=== PATIENT | male | born 1995 | race Caucasian/White ===

== ENCOUNTER 2016-12-30 11:32 | Emergency (ER) | payer OTHER ==
[2016-12-30 11:41] VITALS: RESP 18
--- NOTE | 2016-12-30 12:17 | XR ---
EXAMINATION TYPE: XR chest 2V DATE OF EXAM: 12/30/2016 12:10 PM COMPARISON: 02/24/1999 HISTORY: Chest pain TECHNIQUE: Frontal and lateral views of the chest are obtained. FINDINGS: There is no focal air space opacity. No evidence for pnuemothorax.No pleural effusion. The cardiac silhouette size is within normal limits. The osseous structures are grossly intact. IMPRESSION: 1. No acute cardiopulmonary process.
--- NOTE | 2016-12-30 12:22 | ED ---
General Adult HPI - General Stated complaint: chest discomfort Time Seen by Provider: 12/30/16 11:34 Source: patient, EMS, RN notes reviewed Mode of arrival: EMS Limitations: no limitations - History of Present Illness Initial comments: 21-year-old male presenting for left sided lateral chest pain. Patient states he was at work lifting heavy items when he felt sudden onset of left sharp pain. He states it feels like "butterflies with razor blades fluttering in my chest." States that the symptoms resolved after about 15 minutes spontaneously. He denies any active chest pain at this time. EMS did give him a full aspirin in route and fluid bolus. Denies any significant early family history of ACS. He does smoke. States he has a history of anxiety and depression but is not currently on any medications for this. He denies any shortness breath. He denies any fevers or chills. He denies any recent injury or trauma. - Related Data Home Medications Medication Instructions Recorded Confirmed No Known Home Medications [No 12/30/16 12/30/16 Known Home Medications] Allergies Allergy/AdvReac Type Severity Reaction Status Date / Time No Known Allergies Allergy Verified 12/30/16 12:10 Review of Systems ROS Statement: Those systems with pertinent positive or pertinent negative responses have been documented in the HPI. ROS Other: All systems not noted in ROS Statement are negative. Past Medical History Additional Past Medical History / Comment(s): back pain History of Any Multi-Drug Resistant Organisms: None Reported Past Surgical History: Appendectomy Past Psychological History: Anxiety, Depression Smoking Status: Current every day smoker Past Alcohol Use History: Occasional Past Drug Use History: Marijuana General Exam - General Exam Comments Initial Comments: General: Awake and Alert. No acute distress. Does not appear acutely ill. Eyes: AXEL, EOM intact. No nystagmus. No scleral icterus. HENT: Atraumatic, normocephalic. Mucous membranes moist. Trachea midline. Neck: The neck is supple, there is no tenderness or JVD. Cardiovascular: Regular rate and rhythm. No murmur, rub, or gallop is appreciated. Distal pulses intact. Respiratory: Lungs are clear to auscultation bilaterally. No wheezes, rales, rhonchi. No respiratory distress. Gastrointestinal: Soft, Nontender. No rebound or guarding. Non-distended. No masses or organomegaly noted. No CVA tenderness. Musculoskeletal: Mild left lateral rib tenderness. Otherwise, skin exam with no tenderness. Normal ROM. No gross deformity. No strength deficits. Neurological: A&Ox3. CN II-XII grossly intact, There are no obvious motor or sensory deficits. Coordination appears grossly intact. Speech is normal. Skin: Skin is warm and dry and no rashes or lesions are noted. Psychiatric: Cooperative, appropriate mood & affect, normal judgment. Limitations: no limitations Course Vital Signs 12/30/16 11:39 Temperature 97.1 F L Pulse Rate 56 L Respiratory 18 Rate Blood Pressure 121/67 O2 Sat by Pulse 100 Oximetry EKG Findings - EKG Comments: EKG Findings:: EKG 11:42. Sinus rhythm. Rate 62. Normal axis. No STEMI. Normal EKG. Medical Decision Making - Medical Decision Making 21-year-old male presenting for chest pain. Patient does smoke but other than this has no significant cardiac risk factors. Vitals are stable, afebrile. Patient with mild reproducible tenderness on exam. Discussed likely musculoskeletal cause of pain. Chest x-ray is performed and with no acute process. EKG without evidence of significant arrhythmia or ischemia. Patient with no active symptoms during his course in the ED. Discussed reassuring findings and stable for discharge this time. Discussed close follow-up with PCP in follow-up for Holter monitor and echo if symptoms should return or persist.. Discussed concerning signs symptoms for the return to the ED. Patient and mother are agreeable with plan and discharge. - EKG Data -: EKG Interpreted by Me EKG shows normal: sinus rhythm Rate: normal - Radiology Data Radiology results: report reviewed, image reviewed Disposition Clinical Impression: Chest pain, unspecified Disposition: HOME SELF-CARE Condition: Stable Instructions: Chest Pain (ED), Costochondritis (ED) Additional Instructions: Please follow up with your primary doctor for a Holter Monitor and ECHO if symptoms return frequently. Referrals: None,Stated [Primary Care Provider] - 1-2 days Time of Disposition: 12:23
[2016-12-30 13:00] VITALS: BP 123/74; PULSE 64; TEMP 97.6
== END 2016-12-30 13:00 | disposition home or self-care (01) ==
LOC: EC 11:32
DX: R07.9 Chest pain, unspecified (principal); F17.200 Nicotine dependence, unspecified, uncomplicated
CPT/HCPCS: 71020; 93005; 99285

== ENCOUNTER 2019-02-18 02:17 | Inpatient (IN) | payer OTHER ==
--- NOTE | 2019-02-18 03:10 | ED ---
Psych HPI - General Chief Complaint: Psychiatric Symptoms Stated Complaint: Mental Health Time Seen by Provider: 02/18/19 02:20 Source: patient, police Mode of arrival: ambulatory - History of Present Illness Initial Comments: 23-year-old male patient presents to the emergency department today for evaluation of suicidal ideation. Patient states he has had a stressful couple of weeks. Patient states he was at work tonight when he had the urge to kill himself. Patient states that he did start to cut his arm with a knife he keeps in his car. Patient denies any specific plan to take his life, states he did part on the [employer] [place] approximately 15 minutes with no trains came. Patient states he has had suicide attempt in the past. Has been admitted inpatient in [facility]. Patient states he occasionally smokes marijuana to relieve his anxiety but denies any other street drugs. Denies any alcohol use. He denies any verbal or auditory hallucinations. States that it has been 1 year since he has been on any medication for depression. He denies any current physical symptoms or concerns. He is up-to-date on his tetanus vaccine. Patient denies any recent rash, fever, chills, shortness breath, chest pain, abdominal pain, nausea, vomiting, diarrhea, constipation, back pain, numbness, tingling, dizziness, weakness, hematuria, dysuria, urinary urgency, urinary frequency, headache, visual changes, or any other complaints. - Related Data Home Medications Medication Instructions Recorded Confirmed No Known Home Medications 12/30/16 12/30/16 Allergies Allergy/AdvReac Type Severity Reaction Status Date / Time No Known Allergies Allergy Verified 12/30/16 12:10 Review of Systems ROS Statement: Those systems with pertinent positive or pertinent negative responses have been documented in the HPI. ROS Other: All systems not noted in ROS Statement are negative. Past Medical History Additional Past Medical History / Comment(s): back pain History of Any Multi-Drug Resistant Organisms: None Reported Past Surgical History: Appendectomy Past Psychological History: Anxiety, Depression Smoking Status: Former smoker Past Alcohol Use History: Occasional Past Drug Use History: Marijuana General Exam General appearance: alert, in no apparent distress, other (Physical well- developed, well-nourished adult male patient in no acute distress. Vital signs upon presentation are temperature 98.3F, pulse 91, respirations 16, blood pressure 145/82) Eye exam: Present: normal appearance, PERRL, EOMI. Absent: scleral icterus, conjunctival injection, periorbital swelling ENT exam: Present: normal exam, normal oropharynx, mucous membranes moist Respiratory exam: Present: normal lung sounds bilaterally. Absent: respiratory distress, wheezes, rales, rhonchi, stridor Cardiovascular Exam: Present: regular rate, normal rhythm, normal heart sounds. Absent: systolic murmur, diastolic murmur, rubs, gallop, clicks GI/Abdominal exam: Present: soft, normal bowel sounds. Absent: distended, tenderness, guarding, rebound, rigid Neurological exam: Present: alert, oriented X3, CN II-XII intact Psychiatric exam: Present: suicidal ideation. Absent: homicidal ideation Skin exam: Present: warm, dry, intact, normal color. Absent: rash Course Vital Signs 02/18/19 02:20 Temperature 98.3 F Pulse Rate 91 Respiratory 16 Rate Blood Pressure 145/82 Medical Decision Making - Medical Decision Making 23-year-old male patient presented to the emergency department today for suic idal ideation. Patient did self harm by cutting his left arm. He was cleared medically. He was seen and evaluated by emergency psychiatric services. It is felt he would benefit from inpatient admission at this time will be transferred to the mental health unit. - Lab Data Lab Results 02/18/19 Range/Units 03:20 Urine Opiates Screen Not Detected (NotDetected) Ur Oxycodone Screen Not Detected (NotDetected) Urine Methadone Screen Not Detected (NotDetected) Ur Propoxyphene Screen Not Detected (NotDetected) Ur Barbiturates Screen Not Detected (NotDetected) U Tricyclic Antidepress Not Detected (NotDetected) Ur Phencyclidine Scrn Not Detected (NotDetected) Ur Amphetamines Screen Not Detected (NotDetected) U Methamphetamines Scrn Not Detected (NotDetected) U Benzodiazepines Scrn Not Detected (NotDetected) Urine Cocaine Screen Not Detected (NotDetected) U Marijuana (THC) Screen Detected H (NotDetected) Disposition Clinical Impression: Suicidal ideation Disposition: TRANSFER TO PSYCH HOSP/UNIT Condition: Serious Referrals: None,Stated [Primary Care Provider] - 1-2 days - Out of Hospital Transfer - Req. Specs Out of Hospital Transfer - Requested Specifics: Psychiatric Non-ICU ([facility] unit)
[2019-02-18 04:00] LABS: Amphetamine Screen,Urine Not Detected (NotDetected); Barbiturate Screen,Urine Not Detected (NotDetected); Benzodiazepines Screen,Urine Not Detected (NotDetected); Cocaine Screen,Urine Not Detected (NotDetected); Methadone Screen, Urine Not Detected (NotDetected); Opiate Screen,Urine Not Detected (NotDetected); Oxycodone Screen, Urine Not Detected (NotDetected); Phencyclidine Screen,Urine Not Detected (NotDetected); Tricyclic Antidepressant,Urine Not Detected (NotDetected); Urn Cannabinoid Scrn Detected (NotDetected)
[2019-02-18] MEDS ORDERED: MAG HYDROX/AL HYDROX/SIMETH 30 ML CUP PO PRN (04:37)
[2019-02-18] MEDS ORDERED: ZIPRASIDONE 20 MG VIAL IM PRN (04:37)
[2019-02-18] MEDS ORDERED: ACETAMINOPHEN TAB 325 MG TAB PO PRN (04:37)
[2019-02-18] MEDS ORDERED: MAGNESIUM HYDROXIDE 2,400 MG/10 ML CUP PO PRN (04:37)
[2019-02-18] MEDS ORDERED: LORazepam 1 MG TAB PO PRN (05:30)
[2019-02-18 06:12] VITALS: BMI 27.8
[2019-02-18 07:07] LABS: Amorphous Sediment,Urine Moderate /hpf; Appearance,Urine Turbid (Clear); Bilirubin,Urine Negative (Negative); Blood,Urine Negative (Negative); Calcium Oxalate Crystals,Urine Occasional /hpf; Color,Urine Yellow; Glucose,Urine (UA) Negative (Negative); Ketones,Urine 1+ (Negative); Leukocyte Esterase,Urine Negative (Negative); Mucus,Urine Occasional /hpf; Nitrite,Urine Negative (Negative); PH, Urine 5.5 (5.0-8.0); Protein,Urine Trace (Negative); Specific Gravity,Urine 1.034 (1.001-1.035); Squamous Epithelial Cell,Urine <1 /hpf (0-4); Urobilinogen,Urine <2.0 mg/dL (<2.0)
[2019-02-18] MEDS ORDERED: LORazepam 1 MG TAB PO SCH (09:00)
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
--- NOTE | 2019-02-18 15:04 | P.HPMEDMHU ---
History of Present Illness H&P Date: 02/18/19 Chief Complaint: Consult for HPI The patient is a 23-year-old male is admitted to the psychiatric floor after he presented with suicidal ideation with a history of depression and anxiety. The patient apparently had ideation of stepping in front of an oncoming train, he has been superficially cutting himself for several years, he reported to having a suicide pact with a close friend. The patient reports to identify as transgendered despite presenting as male, the patient presents to the undergo hormonal therapy with eventually transitioning with surgery. The patient denies any chest pain shortness of breath or any other somatic complaints. He denies any significant medical history other than occasionally smoking marijuana. Review of Systems Pertinent positives per HPI all other systems otherwise negative Past Medical History Additional Past Medical History / Comment(s): back pain History of Any Multi-Drug Resistant Organisms: None Reported Past Surgical History: Appendectomy Past Anesthesia/Blood Transfusion Reactions: No Reported Reaction Past Psychological History: Anxiety, Depression Smoking Status: Former smoker Past Alcohol Use History: Occasional Past Drug Use History: Marijuana Medications and Allergies Home Medications Medication Instructions Recorded Confirmed Type No Known Home Medications 12/30/16 02/18/19 History Allergies Allergy/AdvReac Type Severity Reaction Status Date / Time No Known Allergies Allergy Verified 02/18/19 04:41 Physical Exam Vitals: Vital Signs Temp Pulse Pulse Resp BP BP Pulse Ox 02/18/19 05:58 97.6 F 65 18 127/82 98 02/18/19 02:20 98.3 F 91 16 145/82 Intake and Output 02/17/19 02/18/19 02/18/19 22:59 06:59 14:59 Other: Weight 81.647 kg Constitutional: No acute distress, conversant, pleasant Eyes: Anicteric sclerae, moist conjunctiva, no lid-lag, PERRLA ENMT: NC/AT,Oropharynx clear, no erythema, exudates Neck:Supple, FROM, no masses, or JVD, No carotid bruits; No thyromegaly Lungs: Clear to auscultation, Clear to percussion, Normal respiratory effort, no accessory muscle use Cardiovascular: Heart regular in rate and rhythm, No murmurs, gallops, or rubs no peripheral edema Abdominal: Soft Nontender, nom distended, no guarding, no rebound or rigidity, Normoactive bowel sounds No hepatomegaly, No splenomegaly, No palpable mass No abdominal wall hernia noted Skin: Normal temperature, tone, texture, turgor, No induration No subcutaneous nodules, No rash, lesions, No ulcers Extremities:No digital cyanosis No clubbing, Pedal pulses intact and symmetrical Radial pulses intact and symmetrical Normal gait and station, No calf tenderness Psychiatric: Alert and oriented to person, place and time, Appropriate affect Intact judgement Neuro: Muscles Strength 5/5 in all 4 extremities, Sensation to light touch grossly present throughout, Cranial nerves II-XII grossly intact. No focal sensory deficits Cranial Nerve Examination - Cranial Nerves Cranial Nerve II- Optic: Intact Cranial Nerve III- Oculomotor: Intact Cranial Nerve IV- Trochlear: Intact Cranial Nerve V- Trigeminal: Intact Cranial Nerve - Abducens: Intact Cranial Nerve VII- Facial: Intact Cranial Nerve VIII- Auditory: Intact Cranial Nerve IX- Glossopharyngeal: Intact Cranial Nerve X- Vagus: Intact Cranial Nerve XI- Accessory: Intact Cranial Nerve XII- Hypoglossal: Intact Results Labs: Abnormal Lab Results - Last 24 Hours (Table) 02/18/19 02/18/19 Range/Units 03:20 03:20 Urine Protein Trace H (Negative) Urine Ketones 1+ H (Negative) Calcium Oxalate Crystal Occasional H (None) /hpf Amorphous Sediment Moderate H (None) /hpf Urine Mucus Occasional H (None) /hpf U Marijuana (THC) Screen Detected H (NotDetected) Thrombosis Risk Factor Assmnt - Choose All That Apply Each Factor Represents 1 point: Obesity (BMI >25) Other Risk Factors: No Other congenital or acquired thrombophilia - If yes, enter type in comment: No Thrombosis Risk Factor Assessment Total Risk Factor Score: 1 Thrombosis Risk Factor Assessment Level: Low Risk Assessment and Plan (1) Major depression Current Visit: Yes Status: Acute Code(s): F32.9 - MAJOR DEPRESSIVE DISORDER, SINGLE EPISODE, UNSPECIFIED SNOMED Code(s): 256298829 (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 The patient is hemodynamically stable denies any significant medical history, admission the patient did have a positive UDS for THC. He is otherwise medically stable, hence we'll sign off today. For further questions or concerns please do not hesitate to contact us on inpatient team
[2019-02-18] MEDS: MELATONIN 3 MG TABLET PO SCH (21:39)
[2019-02-19] MEDS: FLUoxetine HCL 10 MG CAP PO SCH (07:35)
[2019-02-19 09:53] LABS: Basophils % (A) 1 %; Eosinophils # (A) 0.1 k/uL (0-0.7); Eosinophils % (A) 2 %; HCT 51.9 % (39.0-53.0); HGB 17.4 gm/dL (13.0-17.5); Lymphocytes # (A) 1.3 k/uL (1.0-4.8); Lymphocytes % (A) 23 %; MCH 30.7 pg (25.0-35.0); MCHC 33.6 g/dL (31.0-37.0); MCV 91.2 fL (80.0-100.0); Mean Platelet Volume 6.7; Monocytes # (A) 0.5 k/uL (0-1.0); Monocytes % (A) 8 %; Neutrophils # (A) 3.7 k/uL (1.3-7.7); Neutrophils % (A) 65 %; Platelet Count 290 k/uL (150-450); RBC 5.69 m/uL (4.30-5.90); RDW 12.3 % (11.5-15.5); WBC 5.8 k/uL (3.8-10.6)
[2019-02-19 10:11] LABS: ALT 37 U/L (21-72); AST 29 U/L (17-59); African American GFR (CKD) >90 (>60 ml/min/1.73 sqM); Albumin 5.2 g/dL (3.5-5.0); Alkaline Phosphatase 55 U/L (38-126); Anion Gap 11 mmol/L; Blood Urea Nitrogen 17 mg/dL (9-20); Calcium 9.9 mg/dL (8.4-10.2); Carbon Dioxide 30 mmol/L (22-30); Chloride 101 mmol/L (98-107); Cholesterol 175 mg/dL (<200); Glucose 87 mg/dL (74-99); HDL Cholesterol 41 mg/dL (40-60); LDL Cholesterol,Calculated 110 mg/dL (0-99); Potassium 4.6 mmol/L (3.5-5.1); Sodium 142 mmol/L (137-145); Total Bilirubin 1.1 mg/dL (0.2-1.3); Total Protein 8.2 g/dL (6.3-8.2); Triglycerides 120 mg/dL (<150)
--- NOTE | 2019-02-19 12:31 | P.PN ---
Progress Note - Text Progress Note Date: 02/19/19 Interval History: Patient is a 23-year-old male who was seen this morning and he reports that he is not having any suicidal thoughts but still feels somewhat hopeless and has no contact with his family since his admission. He states that he was anxious yesterday and had the urge to cut himself due to being concerned about another patient and the patient's comments to him. Patient states that he lives with his grandmother currently because she has not been charging him rent and he had no way to support himself when he returned here from [place]. Patient states that he slept well and has been eating well. He reports no other urges to cut himself. Patient reports no side effects from the medication. Mental Status: Appearance/Attitude: Patient is neatly and appropriately dressed, makes eye contact and was cooperative. Behavior: Patient does not display any psychomotor agitation or retardation Speech/Language: Patient's speech is spontaneous and normal volume and rhythm and he is coherent Thought Process: Patient is goal-directed there is no evidence of loose association or flight of ideas Thought Content: Patient denies any auditory or visual hallucinations no delusions or paranoid ideation or elicited. Patient states he continues to feel somewhat hopeless, states that he has not had any contact with his family since his admission and states that he has one friend that he feels really comfortable with who makes him feel good about himself. Patient states he was anxious about another patient on the unit yesterday and had the urge to cut himself at that time. He states otherwise he has not had any urges to cut himself. He slept well and is eating well. Suicidal/Homicidal Ideation: Patient denies any current suicidal or homicidal ideation Sensorium/Cognition: Patient is alert and oriented to person, place, and time and his recent and remote memory are grossly intact Mood/Affect: Patient's mood remains depressed his affect appropriate to his mood Insight/Judgment: Patient's insight and judgment are intact Assessment: Patient discussed his concerns about another patient making derogatory statements towards him and his becoming nervous and having the urge to cut at that time but states that otherwise he has not had any urges to cut himself. He states he still feels hopeless and depressed about his situation especially his family's lack of understanding for his wish for gender transition. Patient states that he has one friend who makes him feel positive and enjoys her company. Patient states that he is not any side effects from the Prozac and is not reporting any current suicidal thoughts. He slept well and has been attending groups and activities. Plan: Patient will continue on Prozac 10 mg in the morning to target his depression, patient was encouraged to continue to attend groups and activities, anticipate discharge early next week and we'll continue to evaluate his response to medication and make adjustments as needed.
[2019-02-19 17:21] LABS: Hemoglobin A1C 4.3 % (4.0-6.0)
[2019-02-19] MEDS: MELATONIN 3 MG TABLET PO SCH (22:00)
[2019-02-20] MEDS: FLUoxetine HCL 10 MG CAP PO SCH (07:41)
--- NOTE | 2019-02-20 12:24 | P.PN ---
Progress Note - Text Progress Note Date: 02/20/19 Interval History: Patient is a 23-year-old male who was seen today and he reports no desire to cut and no desire to cut off body parts. Patient states that he has no suicidal ideation currently. He states that he is more hopeful about the future, regarding his gender transition. Patient states that he has been attending groups and activities and is feeling less hopeless. Patient states he is trying to keep a more positive outlook for the future. Mental Status: Appearance/Attitude: Patient is neatly and appropriately dressed, makes eye contact and was cooperative. Behavior: Patient does not display any psychomotor agitation or retardation. Speech/Language: Speech is spontaneous of normal volume and rhythm and he is coherent Thought Process: Patient is goal-directed there is no evidence of loose association or flight of ideas Thought Content: A she denies any auditory or visual hallucinations no delusions or paranoid ideation or elicited. Patient states that he is feeling less hopeless and more positive about the future. He states he has thought about how to approach his family regarding his gender transition. Patient states that he has no thoughts to cut himself and no thoughts to cut off body parts. States that he is sleeping and eating well and reports no side effects from the medication. Suicidal/Homicidal Ideation: Patient denies any current suicidal or homicidal ideation Sensorium/Cognition: Patient is alert and oriented to person, place, and time and his recent and remote memory grossly intact Mood/Affect: Patient's mood is less depressed and his affect is brighter Insight/Judgment: Patient's insight and judgment are fair Assessment: Patient reports feeling more hopeful about the future, states that he hopes to obtain housing on his own so that he is more independent and not living with his grandmother. Patient states he has no urges to cut himself and no desire to remove body parts. Patient states that current suicidal ideation and he is eating and sleeping well. Patient has been attending groups and activities and finds that it is been helpful. Plan: Patient will continue on Prozac 10 mg in the morning and melatonin 3 mg at bedtime to target his depression. Patient and I have discussed approaches he continues to discuss his gender transition with his family. Patient and I discussed possible discharge at the beginning of the week and he was in agreement with this plan.
[2019-02-20] MEDS: MELATONIN 3 MG TABLET PO SCH (21:08)
[2019-02-21] MEDS: FLUoxetine HCL 10 MG CAP PO SCH (08:29)
--- NOTE | 2019-02-21 12:22 | P.PN ---
Progress Note - Text Progress Note Date: 02/21/19 Interval History: Patient is a 23-year-old male and he reports that he is feeling better, states that he has no urges to cut himself and has no thoughts of suicide. He states that he also has no thoughts of removing body parts. 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 He states that he is hopeful in several weeks that he can save enough money to move out on his own. Patient states that he plans to return to live with his grandmother. Patient reports no side effects from the medication and states his mood has improved and he is more positive in his outlook. Mental Status:Appearance/Attitude: Patient is appropriately dressed, makes eye contact and was cooperative Behavior: Patient does not display any psychomotor agitation or retardation. Speech/Language: Patient's speech is spontaneous of normal volume and rhythm and he is coherent. Thought Process: Patient is goal-directed there is no evidence of loose association or flight of ideas Thought Content: Patient denies any auditory or visual hallucinations and no delusions or paranoid ideation or elicited. Patient states he has no urges to cut himself, no urges to cut off body parts and states that his outlook is more hopeful. He states he is feeling more positive about the future. Patient still has concerns about his family's acceptance of his gender transition. Patient states that he is sleeping and eating well. Suicidal/Homicidal Ideation: Patient reports no current suicidal or homicidal ideation Sensorium/Cognition: Patient is alert and oriented to person, place, and time and his recent and remote memory are grossly intact. Mood/Affect: Patient's mood is pleasant and his affect is appropriate Insight/Judgment: Patient's insight and judgment are intact Assessment: Patient states that he is feeling more hopeful and positive about the future, states that he feels ready to return home. He states he will continue to live with his grandmother until he can save up enough money to move out on his own. Patient states that he is no longer having any suicidal thought, no urges to cut and no urges to cut off body parts. Patient states that he does not wish to have a family meeting before discharge. Patient states that he will return to live with his grandmother. Patient will also return to work, he states that he was laid off for this coming week. Plan: Patient will continue on Prozac 10 mg in the morning, patient is responding well to the treatment and states that he feels ready to be discharged tomorrow and is interested in follow-up care.
[2019-02-21] MEDS: MELATONIN 3 MG TABLET PO SCH (22:05)
[2019-02-22] MEDS: FLUoxetine HCL 10 MG CAP PO SCH (08:19)
--- NOTE | 2019-02-22 10:37 | P.PN ---
Progress Note - Text Progress Note Date: 02/22/19 Interval History: Patient is a 23-year-old male who was seen today and he reports that he had a bad dream last evening where he found himself visiting his family dressed as a woman and the interaction went horribly, patient states he found himself scratching himself this morning, feeling more depressed about that. He states that he now has decided to not return to live with his grandmother but campout until he can find an apartment to stay in in the [facility] where he is working. Patient states that he is on any suicidal thoughts, denied feeling like cutting off in the body parts but did feel like cutting or scratching last evening and this morning. Patient reports that he has been eating and sleeping well. Mental Status: Appearance/Attitude: Patient is neatly and appropriately dressed, makes eye contact and was cooperative. Behavior: Patient does not exhibit any psychomotor agitation or retardation. Speech/Language: Patient's speech is spontaneous of normal volume and rhythm and he is coherent. Thought Process: Patient is goal-directed there is no evidence of loose ass ociation or flight of ideas Thought Content: Patient denies any auditory or visual hallucinations no delusions or paranoid ideation or elicited. Patient states that he had a bad dream about visiting his family dressed as a woman and it went horribly. He states that he was scratching himself and woke up feeling the urge to do self- harm but did not act on it. Patient states that he's decided to not return to live with his grandmother and to put some distance between himself and his family for the time being. Patient states that he has been eating well and sleeping and has been attending groups and activities. Suicidal/Homicidal Ideation: Patient denies any current suicidal or homicidal ideation Sensorium/Cognition: Patient is alert and oriented to person, place, time and his recent and remote memory are grossly intact Mood/Affect: Patient's mood is pleasant and his affect is appropriate Insight/Judgment: Patient's insight and judgment are fair Assessment: Patient states that after the dream last night and awakening scratching himself and having thoughts of self-harm he wants to stay another day in the hospital. He has decided now to not return to live with his grandmother and put some distance between himself and his family for the time being. Patient states that he has thought of camping out until he can find an apartment or place to live. Patient states that he is comfortable doing this. Patient states that he is not currently having any suicidal thoughts or thoughts of self-harm and no thoughts to remove body parts. Patient states that the medications of been effective he is not feeling depressed no suicidal thoughts. Patient is been attending groups and activities. Plan: Patient will continue on Prozac 10 mg with a plan now to discharge tomorrow. Patient states he will campout until he can find a more permanent place to live.
[2019-02-22] MEDS: MELATONIN 3 MG TABLET PO SCH (22:04)
[2019-02-23 05:59] VITALS: BP 126/76; PULSE 66; RESP 14; TEMP 98.5
[2019-02-23] MEDS: FLUoxetine HCL 10 MG CAP PO SCH (08:23)
--- NOTE | 2019-02-23 12:18 | P.DS ---
Providers Date of admission: 02/18/19 04:31 Expected date of discharge: 02/23/19 Attending physician: Shelley Luu MD Consults: 02/18/19 04:37 Consult Physician Routine Consulting Provider: Roel Finney Consult Reason/Comments: H&P for mental health admission Do you want consulting provider notified?: Yes Primary care physician: Stated None Hospital Course: Discharge Diagnosis: Major depressive disorder, recurrent, moderate severity; gender dysphoria and adults; cannabis use disorder, moderate Reason for Admission: Patient is a 23-year-old male who was brought to the emergency room by police reporting that he had suicidal thoughts with a plan to run in front of a train cut himself and then verbalized that he hated his body wanting to cut off his penis. Patient states that he has been depressed for a number of years and has tried to commit suicide several times in the past. He states that he is also been superficially cutting for the last 10 years. He states that his last suicide attempt was last fall when he tried to hang himself and his tried to hang himself several times in the past. Patient reports that he's been admitted 3-4 times in the past the first time being in 2012 for suicidal thoughts and depressive symptoms and his last admission was in January 2018 and most were in [place] when he was in the [employer]. Patient states that the mandatory outpatient treatment and the medications that were prescribed, which she recalled his Cymbalta, Wellbutrin and Remeron were not helpful. Patient reports that he had side effects of feeling sedated and nausea and vomiting from some of the medications and that one medication made his suicidal thoughts increase. He reports that he has been depressed for years and states that he has issues with his body complaining of body hair, would "love to cut my fox off some days" states he doesn't like masculine things and would like to look more like his sister. Patient states that he has contemplated a gender change, especially over the last year and has begun to discuss it with his family. He states his family discusses it with him as though it's a fat although his sister has been more accepting and supportive of this. He states his grandmother dislikes the idea due to her restorationism views and he has concerns that she will not speak with him if he moves forward. He states that he has never spoken with this while he was in treatment in the past due to being in the [employer] and until your ago had not fully accepted this idea. Patient states he currently has no insurance so has not sought further treatment for gender change. Patient states his symptoms of depression began when his midteens with suicidal thoughts with a decreased interest in enjoyment in activities and he states that his grades dropped dramatically in school. He became more withdrawn, hopeless with disrupted sleep and his appetite was up and down. States that he did have crying spells and had difficulty focusing and concentrating and stopped reading something that he enjoyed. Patient states that he has never had any auditory or visual hallucinations, no paranoid or delusional ideation and is not able to endorse any manic symptoms or anxiety symptoms. Patient is currently reporting having suicidal thoughts with plan to either run in front of a train, cut himself and states that he is interested in doing things has little motivation and no energy. He states his sleep has been disrupted and he feels tired during the day having difficulty focusing and concentrating. Patient states that he is disgusted by his body and wishes to have a gender change but has not moved forward with any counseling or discussion with any professionals regarding this. Mental status on admission: Appearance/Attitude: Patient is dressed in a hospital gown, makes eye contact and was cooperative Behavior: Patient did not display any psychomotor agitation or retardation Speech/Language: Patient's speech was spontaneous of normal volume and rhythm and he is coherent Thought Process: Patient was goal-directed there is no evidence of loose association or flight of ideas Thought Content: Patient denies any auditory or visual hallucinations no delusions or paranoid ideation or elicited. Patient discussed his wish to change genders, stating that he is disgusted by his body. Patient states that he also has cut himself over the last 10 years and recently superficially cut his left forearm. He states that this was not a suicide attempt but a way to relieve pain and anxiety. Patient states that he's been increasingly depressed with little interest to do things, disrupted sleep, fair appetite and inability to do enjoy any activities. Patient states it's difficult to get himself motivated to go to work. Suicidal/Homicidal Ideation: Patient reports he had suicidal thoughts yesterday with a plan to either run in front of a train, or use a knife states that currently he has no suicidal thoughts and no current homicidal ideation Sensorium/Cognition: Patient is alert and oriented to person, place, and time and his recent and remote memory are grossly intact Mood/Affect: Patient's mood is depressed and his affect slightly blunted Insight/Judgment: Patient's insight and judgment are fair Hospital Course: Patient was admitted on a voluntary basis, routine laboratory studies and a medical consultation were ordered. Patient was also placed on routine observation, group and activity therapy were ordered and the patient and I discussed his prior treatment with medication. Patient and I discussed the use and side effects of Prozac and he was begun on 10 mg in the morning. The patient showed improvement on the medication reporting no further suicidal ideation, no urges to self-harm as well as no urges to remove body parts. Patient states that he has difficulties with his family accepting his gender transition, he's been living with his grandmother who he states was very restorationism and his family also is having difficulty accepting his decision. Patient was attending groups and activities and found them helpful. Patient was also placed on melatonin 3 mg at bedtime to assist with his sleep and the patient was sleeping well and eating well on the unit. Patient stated that he had made the decision to not return to live with his grandmother but would seek his own place closer to where he is working in [place]. 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 Patient continued to improve and was no longer feeling depressed or hopeless and had no urges to self-harm and no suicidal thoughts and felt he was ready for discharge. Patient was tolerating the medication well and was agreeable to follow-up care. Allergies No Known Allergies Allergy (Verified 02/18/19 04:41) Laboratory Last Values WBC 5.8 k/uL (3.8-10.6) 02/19/19 09:34 RBC 5.69 m/uL (4.30-5.90) 02/19/19 09:34 Hgb 17.4 gm/dL (13.0-17.5) 02/19/19 09:34 Hct 51.9 % (39.0-53.0) 02/19/19 09:34 MCV 91.2 fL (80.0-100.0) 02/19/19 09:34 MCH 30.7 pg (25.0-35.0) 02/19/19 09:34 MCHC 33.6 g/dL (31.0-37.0) 02/19/19 09:34 RDW 12.3 % (11.5-15.5) 02/19/19 09:34 Plt Count 290 k/uL (150-450) 02/19/19 09:34 Neutrophils % 65 % 02/19/19 09:34 Lymphocytes % 23 % 02/19/19 09:34 Monocytes % 8 % 02/19/19 09:34 Eosinophils % 2 % 02/19/19 09:34 Basophils % 1 % 02/19/19 09:34 Neutrophils # 3.7 k/uL (1.3-7.7) 02/19/19 09:34 Lymphocytes # 1.3 k/uL (1.0-4.8) 02/19/19 09:34 Monocytes # 0.5 k/uL (0-1.0) 02/19/19 09:34 Eosinophils # 0.1 k/uL (0-0.7) 02/19/19 09:34 Basophils # 0.0 k/uL (0-0.2) 02/19/19 09:34 Sodium 142 mmol/L (137-145) 02/19/19 09:34 Potassium 4.6 mmol/L (3.5-5.1) 02/19/19 09:34 Chloride 101 mmol/L (98-107) 02/19/19 09:34 Carbon Dioxide 30 mmol/L (22-30) 02/19/19 09:34 Anion Gap 11 mmol/L 02/19/19 09:34 BUN 17 mg/dL (9-20) 02/19/19 09:34 Creatinine 0.93 mg/dL (0.66-1.25) 02/19/19 09:34 Est GFR (CKD-EPI)AfAm >90 (>60 ml/min/1.73 sqM) 02/19/19 09:34 Est GFR (CKD-EPI)NonAf >90 (>60 ml/min/1.73 sqM) 02/19/19 09:34 Glucose 87 mg/dL (74-99) 02/19/19 09:[address] Glu mg/dL 77 02/19/19 09:34 Hemoglobin A1c 4.3 % (4.0-6.0) 02/19/19 09:34 Calcium 9.9 mg/dL (8.4-10.2) 02/19/19 09:34 Total Bilirubin 1.1 mg/dL (0.2-1.3) 02/19/19 09:34 AST 29 U/L (17-59) 02/19/19 09:34 ALT 37 U/L (21-72) 02/19/19 09:34 Alkaline Phosphatase 55 U/L (38-126) 02/19/19 09:34 Total Protein 8.2 g/dL (6.3-8.2) 02/19/19 09:34 Albumin 5.2 g/dL (3.5-5.0) H 02/19/19 09:34 Triglycerides 120 mg/dL (<150) 02/19/19 09:34 Cholesterol 175 mg/dL (<200) 02/19/19 09:34 LDL Cholesterol, Calc 110 mg/dL (0-99) H 02/19/19 09:34 HDL Cholesterol 41 mg/dL (40-60) 02/19/19 09:34 TSH 1.030 mIU/L (0.465-4.680) 02/19/19 09:34 Urine Color Yellow 02/18/19 03:20 Urine Appearance Turbid (Clear) 02/18/19 03:20 Urine pH 5.5 (5.0-8.0) 02/18/19 03:20 Ur Specific [place] 1.034 (1.001-1.035) 02/18/19 03:20 Urine Protein Trace (Negative) H 02/18/19 03:20 Urine Glucose (UA) Negative (Negative) 02/18/19 03:20 Urine Ketones 1+ (Negative) H 02/18/19 03:20 Urine Blood Negative (Negative) 02/18/19 03:20 Urine Nitrite Negative (Negative) 02/18/19 03:20 Urine Bilirubin Negative (Negative) 02/18/19 03:20 Urine Urobilinogen <2.0 mg/dL (<2.0) 02/18/19 03:20 Ur Leukocyte Esterase Negative (Negative) 02/18/19 03:20 Ur Squamous Epith Cells <1 /hpf (0-4) 02/18/19 03:20 Calcium Oxalate Crystal Occasional /hpf (None) H 02/18/19 03:20 Amorphous Sediment Moderate /hpf (None) H 02/18/19 03:20 Urine Mucus Occasional /hpf (None) H 02/18/19 03:20 Urine Opiates Screen Not Detected (NotDetected) 02/18/19 03:20 Ur Oxycodone Screen Not Detected (NotDetected) 02/18/19 03:20 Urine Methadone Screen Not Detected (NotDetected) 02/18/19 03:20 Ur Propoxyphene Screen Not Detected (NotDetected) 02/18/19 03:20 Ur Barbiturates Screen Not Detected (NotDetected) 02/18/19 03:20 U Tricyclic Antidepress Not Detected (NotDetected) 02/18/19 03:20 Ur Phencyclidine Scrn Not Detected (NotDetected) 02/18/19 03:20 Ur Amphetamines Screen Not Detected (NotDetected) 02/18/19 03:20 U Methamphetamines Scrn Not Detected (NotDetected) 02/18/19 03:20 U Benzodiazepines Scrn Not Detected (NotDetected) 02/18/19 03:20 Urine Cocaine Screen Not Detected (NotDetected) 02/18/19 03:20 U Marijuana (THC) Screen Detected (NotDetected) H 02/18/19 03:20 Discharge Mental Status: Appearance/Attitude: Patient is casually dressed, makes eye contact and was cooperative Behavior: Patient does not exhibit any psychomotor retardation or agitation Speech/Language: Patient's speech was spontaneous of normal volume and rhythm and he is coherent. Thought Process: Patient is goal-directed there is no evidence of loose associations or flight of ideas Thought Content: Patient denies any auditory or visual hallucinations and no delusions or paranoid ideation or elicited. Patient states he has no urges to self-harm and wishes to cut off body parts. He states he is no longer feeling hopeless and overwhelmed. Patient states he is sleeping and eating well and has interest and motivation to do things. Suicidal/Homicidal Ideation: Patient denies any current suicidal or homicidal ideation Sensorium/Cognition: Patient is alert and oriented to person, place, and time and his recent and remote memory are grossly intact Mood/Affect: Patient's mood is more positive and his affect is bright Insight/Judgment: Patient's insight and judgment are fair Risk Assessment: Patient's risk for readmission is low patient is agreeable to outpatient care, medication and will avoid alcohol or drugs. Discharge Plan: Patient states that he plans to camp out until he has enough money to find a room and board. Patient will continue on Prozac 10 mg in the morning and melatonin 3 mg at night and will be given prescriptions for the Prozac stating he has enough melatonin. Patient will follow-up at [facility], patient was encouraged to be compliant with medication and appointments. Patient was also encouraged to avoid any alcohol or drug use. Patient Condition at Discharge: Serious Plan - Discharge Summary Discharge Rx Participant: No New Discharge Prescriptions: New Melatonin 3 mg PO HS tablet FLUoxetine HCL [PROzac] 10 mg PO DAILY #14 cap Discharge Medication List FLUoxetine HCL [PROzac] 10 mg PO DAILY #14 cap 02/23/19 [Rx] Melatonin 3 mg PO HS tablet 02/23/19 [Rx] Follow up Appointment(s)/Referral(s): [facility] [Outside] - 03/02/19 1:00 pm (Adrienne Serrato) [facility] [NON-STAFF] - 1 Week Patient Instructions/Handouts: Depression (DC), Suicide Prevention (DC) Activity/Diet/Wound Care/Special Instructions: Keep your follow up appointments as scheduled. When you need refills of your medications contact your primary care provider or your out patient psychiatrist. Do not drink alcohol or use drugs. Do not have access to guns or weapons. If symptoms get worse call the crisis line at or go to nearest Emergency room for evaluation. Discharge Disposition: HOME SELF-CARE
== END 2019-02-23 13:44 | disposition home or self-care (01) | DRG 885 ==
LOC: EC 02:17 → 3MHU 04:31
PROVIDERS: ADMIT Psychiatry & Neurology Psychiatry; ATTEND Psychiatry & Neurology Psychiatry
DX: F33.1 Major depressive disorder, recurrent, moderate (principal); F41.9 Anxiety disorder, unspecified; F64.0 Transsexualism; T43.225A Adverse effect of selective serotonin reuptake inhibitors, initial encounter; Z80.3 Family history of malignant neoplasm of breast; Z87.891 Personal history of nicotine dependence; Z91.5 Personal history of self-harm; Z80.0 Family history of malignant neoplasm of digestive organs; Z90.49 Acquired absence of other specified parts of digestive tract
CPT/HCPCS: 80053; 80061; 80306; 81001; 82075; 83036; 84443; 85025; 99285

== ENCOUNTER 2019-04-16 19:26 | Emergency (ER) | payer OTHER ==
[2019-04-16 19:41] VITALS: RESP 18; TEMP 98
[2019-04-16 21:10] LABS: Appearance,Urine Clear (Clear); Bilirubin,Urine Negative (Negative); Blood,Urine Negative (Negative); Color,Urine Yellow; Glucose,Urine (UA) Negative (Negative); Ketones,Urine Trace (Negative); Leukocyte Esterase,Urine Negative (Negative); Nitrite,Urine Negative (Negative); PH, Urine 5.5 (5.0-8.0); Protein,Urine Negative (Negative); Specific Gravity,Urine 1.024 (1.001-1.035)
[2019-04-16 21:19] LABS: Amphetamine Screen,Urine Not Detected (NotDetected); Barbiturate Screen,Urine Not Detected (NotDetected); Benzodiazepines Screen,Urine Not Detected (NotDetected); Cocaine Screen,Urine Not Detected (NotDetected); Methadone Screen, Urine Not Detected (NotDetected); Opiate Screen,Urine Not Detected (NotDetected); Oxycodone Screen, Urine Not Detected (NotDetected); Phencyclidine Screen,Urine Not Detected (NotDetected); Tricyclic Antidepressant,Urine Not Detected (NotDetected); Urn Cannabinoid Scrn Detected (NotDetected)
--- NOTE | 2019-04-16 22:55 | ED ---
General Adult HPI - General Chief complaint: Psychiatric Symptoms Stated complaint: Mental Health Eval, Suicidal Time Seen by Provider: 04/16/19 19:42 Source: patient, RN notes reviewed, old records reviewed Mode of arrival: ambulatory Limitations: no limitations - History of Present Illness Initial comments: 23-year-old male patient presents ED chief complaint of reported suicidal ideations. Patient reports that for years she has been contemplated suicide, states that the symptoms are worse recently. Denies any plan, denies any actions to hurt himself or hurt any other table. Patient currently takes Prozac for depression. Systemic: Pt denies fatigue, fever/chills, rash. Pt denies weakness, night sweats, weight loss. Neuro: Pt denies headache, visual disturbances, syncope or pre-syncope. HEENT: Pt denies ocular discharge or irritation, otalgia, rhinorrhea, pharyngitis or notable lymphadenopathy. Cardiopulmonary: Pt denies chest pain, SOB, heart palpitations, dyspnea on exertion. Abdominal/GI: Pt denies abdominal pain, n/v/d. : Pt denies dysuria, burning w/ urination, frequency/urgency. Denies new onset urinary or bowel incontinence. MSK: Pt denies myalgia, loss of strength or function in extremities. Neuro: Pt denies new onset weakness, paresthesias. - Related Data Previous Rx's Medication Instructions Recorded FLUoxetine HCL [PROzac] 10 mg PO DAILY #14 cap 02/23/19 Melatonin 3 mg PO HS tablet 02/23/19 Allergies Allergy/AdvReac Type Severity Reaction Status Date / Time No Known Allergies Allergy Verified 04/16/19 19:41 Review of Systems ROS Statement: Those systems with pertinent positive or pertinent negative responses have been documented in the HPI. ROS Other: All systems not noted in ROS Statement are negative. Past Medical History Additional Past Medical History / Comment(s): back pain History of Any Multi-Drug Resistant Organisms: None Reported Past Surgical History: Appendectomy Past Anesthesia/Blood Transfusion Reactions: No Reported Reaction Past Psychological History: Anxiety, Depression Smoking Status: Former smoker Past Alcohol Use History: Occasional Past Drug Use History: Marijuana General Exam - General Exam Comments Initial Comments: Constitutional: NAD, AOX3, Pt has pleasant affect. HEENT: NC/AT, trachea midline, neck supple, no lymphadenopathy. Posterior pharynx non erythematous, without exudates. External ears appear normal, without discharge. Mucous membranes moist. Eyes PERRLA, EOM intact. There is no scleral icterus. No pallor noted. Cardiopulmonary: RRR, no murmurs, rubs or gallops, no JVD noted. Lungs CTAB in anterior and posterior huffman. No peripheral edema. Abdominal exam: Abdomen soft and non-distended. Abdomen non-tender to palpation in all 4 quadrants. Bowel sounds active in LLQ. No hepatosplenomegaly. No ecchymosis Neuro: CN II-XII grossly intact. No nuchal rigidity. No raccon eyes, no gaston sign, no hemotympanum. No cervical spinal tenderness. MSK: No posterior calf tenderness bilaterally, homans sign negative bilaterally. Posterior tibialis and radial pulse +2 bilaterally. Sensation intact in upper and lower extremities. Full active ROM in upper and lower extremities, 5/5 stregnth. Limitations: no limitations Course Vital Signs 04/16/19 04/16/19 19:37 21:02 Temperature 98.0 F Pulse Rate 112 H 78 Respiratory 18 Rate Blood Pressure 130/80 O2 Sat by Pulse 97 Oximetry Medical Decision Making - Medical Decision Making 23-year-old male patient presents ED for evaluation of suicidal ideations. Pat ient vital signs stable, afebrile. Physical exam did not display acute pathology. Patient evaluated by EPS. Patient currently denying any suicidal or homicidal ideations. EPS clear patient for discharge. Patient will follow-up on outpatient basis. Case discussed with Dr. Gregorio. - Lab Data Lab Results 04/16/19 Range/Units 21:04 Urine Color Yellow Urine Appearance Clear (Clear) Urine pH 5.5 (5.0-8.0) Ur Specific [place]ellers 1.024 (1.001-1.035) Urine Protein Negative (Negative) Urine Glucose (UA) Negative (Negative) Urine Ketones Trace H (Negative) Urine Blood Negative (Negative) Urine Nitrite Negative (Negative) Urine Bilirubin Negative (Negative) Urine Urobilinogen 2.0 (<2.0) mg/dL Ur Leukocyte Esterase Negative (Negative) Urine Opiates Screen Not Detected (NotDetected) Ur Oxycodone Screen Not Detected (NotDetected) Urine Methadone Screen Not Detected (NotDetected) Ur Propoxyphene Screen Not Detected (NotDetected) Ur Barbiturates Screen Not Detected (NotDetected) U Tricyclic Antidepress Not Detected (NotDetected) Ur Phencyclidine Scrn Not Detected (NotDetected) Ur Amphetamines Screen Not Detected (NotDetected) U Methamphetamines Scrn Not Detected (NotDetected) U Benzodiazepines Scrn Not Detected (NotDetected) Urine Cocaine Screen Not Detected (NotDetected) U Marijuana (THC) Screen Detected H (NotDetected) Disposition Clinical Impression: Depression Disposition: HOME SELF-CARE Condition: Stable Instructions (If sedation given, give patient instructions): Depression (ED) Additional Instructions: Patient to adhere to previously discussed treatment plan and will take medication(s) as directed. Patient to follow up with PCP in 1-2 days. Patient to return to ED if symptoms do not improve. Follow-up with primary care provider tomorrow, return to ER if condition worsens. Is patient prescribed a controlled substance at d/c from ED?: No Referrals: None,Stated [Primary Care Provider] - 1-2 days
[2019-04-17 00:08] VITALS: BP 110/60; PULSE 99
== END 2019-04-16 23:22 | disposition home or self-care (01) ==
LOC: EC 19:26
DX: F32.9 Major depressive disorder, single episode, unspecified (principal); R45.851 Suicidal ideations; Z79.899 Other long term (current) drug therapy; Z87.891 Personal history of nicotine dependence
CPT/HCPCS: 80306; 81003; 82075; 99285

== ENCOUNTER 2019-06-17 14:12 | Emergency (ER) | payer OTHER ==
[2019-06-17 14:23] VITALS: TEMP 97.8
--- NOTE | 2019-06-17 14:45 | ED ---
General Adult HPI - General Chief complaint: Anxiety Stated complaint: Poss Seizure Time Seen by Provider: 06/17/19 14:15 Source: patient, EMS Mode of arrival: EMS Limitations: no limitations - History of Present Illness Initial comments: The patient is a 23-year-old transgender male who presents to the emergency department with reported possible new onset seizure. Patient states that he was at work he had sudden onset of upper extremity paresthesias with paralysis. Reports that he started feeling foggy and had difficulty with his speech. He began having full body tremors. He was conscious route the entire event. Denies a history of seizures in the past. No recent fevers or chills. No blunt head trauma. Denies any unilateral or vertiginous symptoms. No chest pain or shortness breath. Denies abdominal pain. No changes in bowel habits. There is no urinary incontinence. Patient did not bite his tongue. Episode was witnessed by his boss who called EMS. The patient was recently started on Lamictal 2 weeks ago by his psychiatrist. He is unsure if this is a side effect from the medication. Denies taking any excess medications. There are no other alleviating, precipitating or factors - Related Data Home Medications Medication Instructions Recorded Confirmed FLUoxetine HCL [PROzac] 20 mg PO HS 06/17/19 06/17/19 lamoTRIgine [LaMICtal] 50 mg PO HS 06/17/19 06/17/19 Allergies Allergy/AdvReac Type Severity Reaction Status Date / Time No Known Allergies Allergy Verified 06/17/19 14:41 Review of Systems ROS Statement: Those systems with pertinent positive or pertinent negative responses have been documented in the HPI. ROS Other: All systems not noted in ROS Statement are negative. Past Medical History Additional Past Medical History / Comment(s): Back pain History of Any Multi-Drug Resistant Organisms: None Reported Past Surgical History: Appendectomy Past Anesthesia/Blood Transfusion Reactions: No Reported Reaction Past Psychological History: Anxiety, Bipolar, Depression Smoking Status: Current every day smoker Past Alcohol Use History: Occasional Past Drug Use History: Marijuana General Exam Limitations: no limitations General appearance: alert, in no apparent distress Head exam: Present: atraumatic, normocephalic, normal inspection Eye exam: Present: normal appearance, PERRL, EOMI. Absent: scleral icterus, conjunctival injection, periorbital swelling ENT exam: Present: normal exam, mucous membranes moist Neck exam: Present: normal inspection. Absent: tenderness, meningismus, lym phadenopathy Respiratory exam: Present: normal lung sounds bilaterally. Absent: respiratory distress, wheezes, rales, rhonchi, stridor Cardiovascular Exam: Present: regular rate, normal rhythm, normal heart sounds. Absent: systolic murmur, diastolic murmur, rubs, gallop, clicks GI/Abdominal exam: Present: soft, normal bowel sounds. Absent: distended, tenderness, guarding, rebound, rigid Extremities exam: Present: normal inspection, full ROM, normal capillary refill. Absent: tenderness, pedal edema, joint swelling, calf tenderness Back exam: Present: normal inspection Neurological exam: Present: alert, oriented X3, CN II-XII intact Psychiatric exam: Present: normal affect, normal mood Skin exam: Present: warm, dry, intact, normal color. Absent: rash Course Vital Signs 06/17/19 06/17/19 06/17/19 14:15 15:00 16:00 Temperature 97.8 F Pulse Rate 84 75 69 Respiratory 22 17 16 Rate Blood Pressure 129/89 129/77 133/74 O2 Sat by Pulse 98 98 Oximetry 06/17/19 06/17/19 17:00 17:18 Temperature Pulse Rate 74 80 Respiratory 16 18 Rate Blood Pressure 132/86 140/82 O2 Sat by Pulse 98 Oximetry EKG Findings - EKG Comments: EKG Findings:: EKG demonstrates normal sinus rhythm with ventricular rate of 69. VA interval 142. QRS 88. QTC 415. No acute ST segment elevations or depressions concerning for ischemic changes. He does have mild J-point elevation in the inferior, anterior and lateral leads Medical Decision Making - Medical Decision Making Upon arrival the patient was placed in room 16. A thorough history and physical exam was performed. 12-lead EKG was performed which demonstrated normal sinus rhythm. Laboratory studies were conducted. I did recommend a CT of the patient's brain because of his concern for new onset seizure. Patient refused. I did discuss risks of refusing CT to include permanent disability and and the patient understood. Lab studies demonstrate a normal CBC and CMP. I did order a Lamictal level however this is pending. Patient is given a liter bolus of normal saline. I reevaluated the patient he states he feels much improved. At this time he'll be discharged home. He is instructed not to drive. He needs to follow up with his primary care physician. I did recommend Dr. Byers. If this may have been a new onset seizure he needs an MRI and EEG. The patient understood this. He has any new or worsening symptoms she should return to the emergency room. The patient was discharged home in stable condition - Lab Data Result diagrams: 06/17/19 15:15 06/17/19 15:15 Lab Results 06/17/19 06/17/19 06/17/19 Range/Units 15:15 15:15 15:15 WBC 6.2 (3.8-10.6) k/uL RBC 4.84 (4.30-5.90) m/uL Hgb 15.6 (13.0-17.5) gm/dL Hct 43.8 (39.0-53.0) % MCV 90.5 (80.0-100.0) fL MCH 32.3 (25.0-35.0) pg MCHC 35.7 (31.0-37.0) g/dL RDW 12.5 (11.5-15.5) % Plt Count 270 (150-450) k/uL Neutrophils % 70 % Lymphocytes % 18 % Monocytes % 7 % Eosinophils % 2 % Basophils % 2 % Neutrophils # 4.3 (1.3-7.7) k/uL Lymphocytes # 1.1 (1.0-4.8) k/uL Monocytes # 0.5 (0-1.0) k/uL Eosinophils # 0.1 (0-0.7) k/uL Basophils # 0.1 (0-0.2) k/uL Sodium 138 (137-145) mmol/L Potassium 4.6 (3.5-5.1) mmol/L Chloride 103 (98-107) mmol/L Carbon Dioxide 22 (22-30) mmol/L Anion Gap 13 mmol/L BUN 16 (9-20) mg/dL Creatinine 0.92 (0.66-1.25) mg/dL Est GFR (CKD-EPI)AfAm >90 (>60 ml/min/1.73 sqM) Est GFR (CKD-EPI)NonAf >90 (>60 ml/min/1.73 sqM) Glucose 74 (74-99) mg/dL Calcium 9.6 (8.4-10.2) mg/dL Total Bilirubin 1.9 H (0.2-1.3) mg/dL AST 43 (17-59) U/L ALT 26 (21-72) U/L Alkaline Phosphatase 53 (38-126) U/L Creatine Kinase 163 (55-170) U/L Total Protein 8.0 (6.3-8.2) g/dL Albumin 4.9 (3.5-5.0) g/dL TSH 0.840 (0.465-4.680) mIU/L Lamotrigine 1.0 L (2.0-15.0) ug/mL Disposition Clinical Impression: Paresthesias with subjective weakness Disposition: HOME SELF-CARE Condition: Stable Instructions (If sedation given, give patient instructions): Paresthesia (ED) Additional Instructions: If there is concern for new onset seizure, you must have a MRI and EEG. Follow up with your primary care doctor in 2-4 days. Return to the emergency room for any worsening symptoms Is patient prescribed a controlled substance at d/c from ED?: No Referrals: None,Stated [Primary Care Provider] - 1-2 days Kavon Byers MD [STAFF PHYSICIAN] - 1-2 days Time of Disposition: 17:15
[2019-06-17] MEDS ORDERED: SODIUM CHLORIDE 0.9% 1,000 ML IV STA (15:02)
[2019-06-17 15:25] LABS: Basophils # (A) 0.1 k/uL (0-0.2); Basophils % (A) 2 %; Eosinophils # (A) 0.1 k/uL (0-0.7); Eosinophils % (A) 2 %; HCT 43.8 % (39.0-53.0); HGB 15.6 gm/dL (13.0-17.5); Lymphocytes # (A) 1.1 k/uL (1.0-4.8); Lymphocytes % (A) 18 %; MCH 32.3 pg (25.0-35.0); MCHC 35.7 g/dL (31.0-37.0); MCV 90.5 fL (80.0-100.0); Mean Platelet Volume 6.1; Monocytes # (A) 0.5 k/uL (0-1.0); Monocytes % (A) 7 %; Neutrophils # (A) 4.3 k/uL (1.3-7.7); Neutrophils % (A) 70 %; Platelet Count 270 k/uL (150-450); RBC 4.84 m/uL (4.30-5.90); RDW 12.5 % (11.5-15.5); WBC 6.2 k/uL (3.8-10.6)
[2019-06-17 15:35] LABS: ALT 26 U/L (21-72); AST 43 U/L (17-59); African American GFR (CKD) >90 (>60 ml/min/1.73 sqM); Albumin 4.9 g/dL (3.5-5.0); Alkaline Phosphatase 53 U/L (38-126); Anion Gap 13 mmol/L; Blood Urea Nitrogen 16 mg/dL (9-20); Calcium 9.6 mg/dL (8.4-10.2); Carbon Dioxide 22 mmol/L (22-30); Chloride 103 mmol/L (98-107); Creatine Kinase 163 U/L (55-170); Glucose 74 mg/dL (74-99); Potassium 4.6 mmol/L (3.5-5.1); Sodium 138 mmol/L (137-145); Total Bilirubin 1.9 mg/dL (0.2-1.3)
[2019-06-17 17:24] VITALS: BP 140/82; PULSE 80; RESP 18
== END 2019-06-17 17:18 | disposition home or self-care (01) ==
LOC: EC 14:12
DX: R20.2 Paresthesia of skin (principal); R53.1 Weakness; R25.1 Tremor, unspecified; F41.9 Anxiety disorder, unspecified; F32.9 Major depressive disorder, single episode, unspecified; F17.200 Nicotine dependence, unspecified, uncomplicated; Z79.899 Other long term (current) drug therapy; Z53.29 Procedure and treatment not carried out because of patient's decision for other reasons
CPT/HCPCS: 36415; 80053; 80175; 82550; 84443; 85025; 93005; 96360; 99284

== ENCOUNTER 2019-07-12 12:44 | Emergency (ER) | payer OTHER ==
--- NOTE | 2019-07-12 13:08 | ED ---
Anxiety HPI - General Chief Complaint: Anxiety Stated Complaint: Anxiety Time Seen by Provider: 07/12/19 12:54 Source: patient Mode of arrival: EMS - History of Present Illness Initial Comments: 23-year-old male history of bipolar anxiety and chronic depression presents emergency department for chief complaint of possible anxiety attack. Patient states he became very overwhelmed at work tingly all over and began hyperventilating. Patient states it felt like a severe anxiety attack. Patient states it was probably one of the worst she has ever had. Patient denies any chest pain or shortness of breath. Denies suicidal homicidal ideation. Patient states once he arrived in settled into the emergency department he feels completely normal. Patient states he doesn't feel he needs to be here any longer. Remaining review systems negative upon arrival patient appears well - Related Data Home Medications: Home Medications Medication Instructions Recorded Confirmed FLUoxetine HCL [PROzac] 20 mg PO HS 06/17/19 06/17/19 lamoTRIgine [LaMICtal] 50 mg PO HS 06/17/19 06/17/19 Allergies/Adverse Reactions: Allergies Allergy/AdvReac Type Severity Reaction Status Date / Time No Known Allergies Allergy Verified 06/17/19 14:41 Review of Systems ROS Statement: Those systems with pertinent positive or pertinent negative responses have been documented in the HPI. ROS Other: All systems not noted in ROS Statement are negative. Past Medical History Additional Past Medical History / Comment(s): Back pain History of Any Multi-Drug Resistant Organisms: None Reported Past Surgical History: Appendectomy Past Anesthesia/Blood Transfusion Reactions: No Reported Reaction Past Psychological History: Anxiety, Bipolar, Depression Smoking Status: Current every day smoker Past Alcohol Use History: None Reported Past Drug Use History: Marijuana General Exam - General Exam Comments Initial Comments: General: The patient is awake and alert, in no distress, and does not appear acutely ill. Eye: +3 mm pupils are equal, round and reactive to light, extra-ocular movements are intact. No nystagmus. There is normal conjunctiva bilaterally. No signs of icterus. Ears, nose, mouth and throat: There are moist mucous membranes and no oral lesions. Neck: The neck is supple, there is no tenderness or JVD. Cardiovascular: There is a regular rate and rhythm. No murmur, rub or gallop is appreciated. Respiratory: Lungs are clear to auscultation, respirations are non-labored, breath sounds are equal. No wheezes, stridor, rales, or rhonchi. Gastrointestinal: Soft, non-distended, non-tender abdomen without masses or organomegaly noted. There is no rebound or guarding present. Musculoskeletal: Normal ROM, no tenderness. Strength 5/5. Sensation intact. R adial pulses equal bilaterally 2+. Neurological: A&O x 3. CN II-XII intact grossly, There are no obvious motor or sensory deficits. Coordination appears grossly intact. Speech is normal. Skin: Skin is warm and dry and no rashes or lesions are noted. Psychiatric: Cooperative, appropriate mood & affect, normal judgment. Limitations: no limitations Course Vital Signs 07/12/19 07/12/19 12:45 13:54 Temperature 99.2 F 98.9 F Pulse Rate 91 95 Respiratory 22 20 Rate Blood Pressure 123/93 117/92 O2 Sat by Pulse 96 97 Oximetry Medical Decision Making - Medical Decision Making 23-year-old with extensive psychiatric history and anxiety presenting for evaluation. Patient's history consistent with possible anxiety attack. EKG no acute findings. No chest pain. No current complaints patient appears well vital signs stable after discussing the case with my attending provider Dr. Vásquez who is agreeable that patient is stable for discharge with outpatient primary and health care coach follow-up. - EKG Data EKG Comments: Ventricular rate 76 bpm, NJ interval 144 ms, QR methodist 90 ms, QT/QTC 370/416 ms. Normal sinus no ST elevation or depression.artifact appreciated. EKG personally reviewed. Disposition Clinical Impression: Anxiety Disposition: HOME SELF-CARE Instructions (If sedation given, give patient instructions): Generalized Anxiety Disorder (ED) Additional Instructions: Please use medication as discussed. Please follow-up with family doctor in the next 2 days. Please return to emergency room if the symptoms increase or worsen or for any other concerns. Is patient prescribed a controlled substance at d/c from ED?: No Referrals: Kavon Byers MD [Primary Care Provider] - 1-2 days Time of Disposition: 13:49
[2019-07-12 13:56] VITALS: BP 117/92; PULSE 95; RESP 20; TEMP 98.9
== END 2019-07-12 13:54 | disposition home or self-care (01) ==
LOC: EC 12:44
DX: F41.9 Anxiety disorder, unspecified (principal); F31.9 Bipolar disorder, unspecified; F17.200 Nicotine dependence, unspecified, uncomplicated; Z79.899 Other long term (current) drug therapy
CPT/HCPCS: 93005; 99284

== ENCOUNTER 2019-07-26 19:22 | Emergency (ER) | payer OTHER ==
[2019-07-26] MEDS ORDERED: ACTIVATED CHARCOAL 50 GM/240 ML BOTTLE NG-TUBE STA (19:29)
[2019-07-26] MEDS ORDERED: SODIUM CHLORIDE 0.9% 1,000 ML IV STA (19:29)
[2019-07-26] MEDS ORDERED: SODIUM CHLORIDE 0.9% 500 ML 500 ML IV STA (19:29)
[2019-07-26 19:32] VITALS: RESP 18; TEMP 98.7
--- NOTE | 2019-07-26 19:36 | ED ---
Overdose HPI - General Chief Complaint: Overdose Stated Complaint: Suicidal Time Seen by Provider: 07/26/19 19:23 Source: patient, EMS, RN notes reviewed, old records reviewed Mode of arrival: EMS Limitations: no limitations - History of Present Illness Initial Comments: This is a 23-year-old male with history of psychiatric illness, medical as well as psychiatric medications, admits to overdose today in a suicide attempt. He did take multiple medical. Patient denies any other drug or alcohol abuse today. On arrival to ER patient denies being suicidal anymore since he does go through significantly this does occur. He does have appointment with a psychiatrist already made earlier in the day. He is denying any complaints right now name some palpitations and anxiety but no headache chest pain shortness of breath or abdominal MD Complaint: intentional overdose -: hour(s) Intent: suicide attempt, want to escape How Overdose Was Discovered: called 911 Context: Intentional Overdose: other (gender identity disorder) Associated Symptoms: depression, nausea/vomiting, palpitations Treatments Prior to Arrival: none - Related Data Home Medications Medication Instructions Recorded Confirmed FLUoxetine HCL [PROzac] 40 mg PO HS 07/26/19 07/26/19 lamoTRIgine [LaMICtal] 100 mg PO HS 07/26/19 07/26/19 Allergies Allergy/AdvReac Type Severity Reaction Status Date / Time No Known Allergies Allergy Verified 07/26/19 20:28 Review of Systems ROS Statement: Those systems with pertinent positive or pertinent negative responses have been documented in the HPI. ROS Other: All systems not noted in ROS Statement are negative. Past Medical History Additional Past Medical History / Comment(s): Back pain History of Any Multi-Drug Resistant Organisms: None Reported Past Surgical History: Appendectomy Past Anesthesia/Blood Transfusion Reactions: No Reported Reaction Past Psychological History: Anxiety, Bipolar, Depression Smoking Status: Current every day smoker Past Alcohol Use History: None Reported Past Drug Use History: Marijuana General Exam Limitations: no limitations General appearance: alert, in no apparent distress, anxious Head exam: Present: atraumatic, normocephalic, normal inspection Eye exam: Present: normal appearance, PERRL, EOMI. Absent: scleral icterus, conjunctival injection, periorbital swelling ENT exam: Present: normal exam, mucous membranes moist Neck exam: Present: normal inspection. Absent: tenderness, meningismus, l ymphadenopathy Respiratory exam: Present: normal lung sounds bilaterally. Absent: respiratory distress, wheezes, rales, rhonchi, stridor Cardiovascular Exam: Present: regular rate, normal rhythm, normal heart sounds. Absent: systolic murmur, diastolic murmur, rubs, gallop, clicks GI/Abdominal exam: Present: soft, normal bowel sounds. Absent: distended, tenderness, guarding, rebound, rigid Extremities exam: Present: normal inspection, full ROM, normal capillary refill. Absent: tenderness, pedal edema, joint swelling, calf tenderness Back exam: Present: normal inspection Neurological exam: Present: alert, oriented X3, CN II-XII intact Psychiatric exam: Present: normal affect, normal mood Skin exam: Present: warm, dry, intact, normal color. Absent: rash Course Vital Signs 07/26/19 07/26/19 07/26/19 19:27 21:10 23:01 Temperature 98.7 F Pulse Rate 89 76 60 Respiratory 18 18 18 Rate Blood Pressure 154/99 117/73 102/64 O2 Sat by Pulse 98 98 98 Oximetry - Reevaluation(s) Reevaluation #1: 07/27/19 00:33 She was made medically clear for psychiatric evaluation evaluation patient here in the ER Reevaluation #2: 07/27/19 00:33 She did contract for safety Reevaluation #3: 07/27/19 00:33 Patient on arrival to ER decision does not feel depressed or suicidal anymore he does have severe cycling secondary to his medical as well as disease at this time is happy with no thoughts. Medical Decision Making - Medical Decision Making 3-year-old male here for evaluation of overdose to medical. Patient's vital signs are normal CK is negative looks levels of acceptable limits questioning overdose, patient's awake and alert not homicidal symptoms - Lab Data Result diagrams: 07/26/19 20:05 07/26/19 20:05 Lab Results 07/26/19 07/26/19 07/26/19 Range/Units 20:05 20:05 20:05 WBC 5.0 (3.8-10.6) k/uL RBC 5.35 (4.30-5.90) m/uL Hgb 16.9 (13.0-17.5) gm/dL Hct 49.3 (39.0-53.0) % MCV 92.0 (80.0-100.0) fL MCH 31.6 (25.0-35.0) pg MCHC 34.3 (31.0-37.0) g/dL RDW 12.0 (11.5-15.5) % Plt Count 277 (150-450) k/uL Neutrophils % 62 % Lymphocytes % 24 % Monocytes % 9 % Eosinophils % 3 % Basophils % 1 % Neutrophils # 3.1 (1.3-7.7) k/uL Lymphocytes # 1.2 (1.0-4.8) k/uL Monocytes # 0.5 (0-1.0) k/uL Eosinophils # 0.1 (0-0.7) k/uL Basophils # 0.0 (0-0.2) k/uL PT (9.0-12.0) sec INR (<1.2) Sodium 141 (137-145) mmol/L Potassium 4.4 (3.5-5.1) mmol/L Chloride 103 (98-107) mmol/L Carbon Dioxide 29 (22-30) mmol/L Anion Gap 9 mmol/L BUN 12 (9-20) mg/dL Creatinine 1.15 (0.66-1.25) mg/dL Est GFR (CKD-EPI)AfAm >90 (>60 ml/min/1.73 sqM) Est GFR (CKD-EPI)NonAf 89 (>60 ml/min/1.73 sqM) Glucose 74 (74-99) mg/dL Calcium 9.6 (8.4-10.2) mg/dL Phosphorus 4.0 (2.5-4.5) mg/dL Magnesium 2.0 (1.6-2.3) mg/dL Total Bilirubin 0.7 (0.2-1.3) mg/dL AST 25 (17-59) U/L ALT 29 (21-72) U/L Alkaline Phosphatase 67 (38-126) U/L Creatine Kinase 149 (55-170) U/L CK-MB (CK-2) 0.4 (0.0-2.4) ng/mL Troponin I <0.012 (0.000-0.034) ng/mL Total Protein 7.5 (6.3-8.2) g/dL Albumin 4.8 (3.5-5.0) g/dL Lipase 233 (23-300) U/L Salicylates <1.0 mg/dL Urine Opiates Screen (NotDetected) Ur Oxycodone Screen (NotDetected) Urine Methadone Screen (NotDetected) Ur Propoxyphene Screen (NotDetected) Acetaminophen <10.0 ug/mL Ur Barbiturates Screen (NotDetected) U Tricyclic Antidepress (NotDetected) Ur Phencyclidine Scrn (NotDetected) Ur Amphetamines Screen (NotDetected) U Methamphetamines Scrn (NotDetected) U Benzodiazepines Scrn (NotDetected) Urine Cocaine Screen (NotDetected) U Marijuana (THC) Screen (NotDetected) Serum Alcohol <10 mg/dL 07/26/19 07/26/19 Range/Units 20:05 22:40 WBC (3.8-10.6) k/uL RBC (4.30-5.90) m/uL Hgb (13.0-17.5) gm/dL Hct (39.0-53.0) % MCV (80.0-100.0) fL MCH (25.0-35.0) pg MCHC (31.0-37.0) g/dL RDW (11.5-15.5) % Plt Count (150-450) k/uL Neutrophils % % Lymphocytes % % Monocytes % % Eosinophils % % Basophils % % Neutrophils # (1.3-7.7) k/uL Lymphocytes # (1.0-4.8) k/uL Monocytes # (0-1.0) k/uL Eosinophils # (0-0.7) k/uL Basophils # (0-0.2) k/uL PT 10.3 (9.0-12.0) sec INR 1.0 (<1.2) Sodium (137-145) mmol/L Potassium (3.5-5.1) mmol/L Chloride (98-107) mmol/L Carbon Dioxide (22-30) mmol/L Anion Gap mmol/L BUN (9-20) mg/dL Creatinine (0.66-1.25) mg/dL Est GFR (CKD-EPI)AfAm (>60 ml/min/1.73 sqM) Est GFR (CKD-EPI)NonAf (>60 ml/min/1.73 sqM) Glucose (74-99) mg/dL Calcium (8.4-10.2) mg/dL Phosphorus (2.5-4.5) mg/dL Magnesium (1.6-2.3) mg/dL Total Bilirubin (0.2-1.3) mg/dL AST (17-59) U/L ALT (21-72) U/L Alkaline Phosphatase (38-126) U/L Creatine Kinase (55-170) U/L CK-MB (CK-2) (0.0-2.4) ng/mL Troponin I (0.000-0.034) ng/mL Total Protein (6.3-8.2) g/dL Albumin (3.5-5.0) g/dL Lipase (23-300) U/L Salicylates mg/dL Urine Opiates Screen Not Detected (NotDetected) Ur Oxycodone Screen Not Detected (NotDetected) Urine Methadone Screen Not Detected (NotDetected) Ur Propoxyphene Screen Not Detected (NotDetected) Acetaminophen ug/mL Ur Barbiturates Screen Not Detected (NotDetected) U Tricyclic Antidepress Not Detected (NotDetected) Ur Phencyclidine Scrn Not Detected (NotDetected) Ur Amphetamines Screen Not Detected (NotDetected) U Methamphetamines Scrn Not Detected (NotDetected) U Benzodiazepines Scrn Not Detected (NotDetected) Urine Cocaine Screen Not Detected (NotDetected) U Marijuana (THC) Screen Detected H (NotDetected) Serum Alcohol mg/dL - EKG Data -: EKG Interpreted by Me (EKG shows sinus rhythm rate of 75, VA 152, QRS 80, QTC 4 2000) Disposition Clinical Impression: Suicidal ideation, Major depression, Anxiety Disposition: HOME SELF-CARE Condition: Fair Instructions (If sedation given, give patient instructions): Adult Overdose (ED) Is patient prescribed a controlled substance at d/c from ED?: No Referrals: Kavon Byers MD [Primary Care Provider] - 1-2 days
[2019-07-26] MEDS ORDERED: LORazepam 2 MG/ML INJ IV STA (20:05)
[2019-07-26 20:16] LABS: Basophils % (A) 1 %; Eosinophils # (A) 0.1 k/uL (0-0.7); Eosinophils % (A) 3 %; HCT 49.3 % (39.0-53.0); HGB 16.9 gm/dL (13.0-17.5); Lymphocytes # (A) 1.2 k/uL (1.0-4.8); Lymphocytes % (A) 24 %; MCH 31.6 pg (25.0-35.0); MCHC 34.3 g/dL (31.0-37.0); Mean Platelet Volume 6.5; Monocytes # (A) 0.5 k/uL (0-1.0); Monocytes % (A) 9 %; Neutrophils # (A) 3.1 k/uL (1.3-7.7); Neutrophils % (A) 62 %; Platelet Count 277 k/uL (150-450); RBC 5.35 m/uL (4.30-5.90)
[2019-07-26 20:26] LABS: ALT 29 U/L (21-72); AST 25 U/L (17-59); Acetaminophen <10.0 ug/mL; African American GFR (CKD) >90 (>60 ml/min/1.73 sqM); Albumin 4.8 g/dL (3.5-5.0); Alcohol <10 mg/dL; Alkaline Phosphatase 67 U/L (38-126); Anion Gap 9 mmol/L; Blood Urea Nitrogen 12 mg/dL (9-20); Calcium 9.6 mg/dL (8.4-10.2); Carbon Dioxide 29 mmol/L (22-30); Chloride 103 mmol/L (98-107); Creatine Kinase 149 U/L (55-170); Glucose 74 mg/dL (74-99); Non-African American GFR(CKD) 89 (>60 ml/min/1.73 sqM); Potassium 4.4 mmol/L (3.5-5.1); Salicylate <1.0 mg/dL; Sodium 141 mmol/L (137-145); Total Bilirubin 0.7 mg/dL (0.2-1.3); Total Protein 7.5 g/dL (6.3-8.2)
[2019-07-26 20:33] LABS: Prothrombin Time 10.3 sec (9.0-12.0)
[2019-07-26 20:41] LABS: Creatine Kinase MB 0.4 ng/mL (0.0-2.4); Troponin I <0.012 ng/mL (0.000-0.034)
[2019-07-27 00:30] LABS: Amphetamine Screen,Urine Not Detected (NotDetected); Barbiturate Screen,Urine Not Detected (NotDetected); Benzodiazepines Screen,Urine Not Detected (NotDetected); Cocaine Screen,Urine Not Detected (NotDetected); Methadone Screen, Urine Not Detected (NotDetected); Opiate Screen,Urine Not Detected (NotDetected); Oxycodone Screen, Urine Not Detected (NotDetected); Phencyclidine Screen,Urine Not Detected (NotDetected); Tricyclic Antidepressant,Urine Not Detected (NotDetected); Urn Cannabinoid Scrn Detected (NotDetected)
[2019-07-27 00:52] VITALS: BP 110/85; PULSE 79
== END 2019-07-27 01:31 | disposition home or self-care (01) ==
LOC: EC 19:22
DX: F32.9 Major depressive disorder, single episode, unspecified (principal); F41.9 Anxiety disorder, unspecified; R45.851 Suicidal ideations; F17.200 Nicotine dependence, unspecified, uncomplicated; Z79.899 Other long term (current) drug therapy
CPT/HCPCS: 82075; 36415; 93005; 80053; 80175; 82550; 82553; 83690; 83735; 84100; 84484; 85025; 85610; 80306; 83520; 99285; 96374; 96361; G0480 ×2; J2060; 80320; 80329